=== PATIENT | female | born 1945 | race Caucasian/White ===

== ENCOUNTER → 2016-12-07 | Outpatient (CLI) | payer MEDICARE, BC ==
[2016-12-07 09:03] LABS: CH 32.6; CHCM 34.6; HCT 42.9 % (34.0-46.0); HDW 2.52; HGB 14.5 gm/dL (11.4-16.0); MCH 31.9 pg (25.0-35.0); MCHC 33.8 g/dL (31.0-37.0); MCV 94.6 fL (80.0-100.0); Mean Platelet Volume 6.6; RBC 4.54 m/uL (3.80-5.40); RDW 12.3 % (11.5-15.5); WBC 7.4 k/uL (3.8-10.6)
[2016-12-07 10:02] LABS: ALT 35 U/L (9-52); AST 23 U/L (14-36); Alkaline Phosphatase 63 U/L (38-126); Anion Gap 8 mmol/L; Blood Urea Nitrogen 18 mg/dL (7-17); Calcium 9.2 mg/dL (8.4-10.2); Carbon Dioxide 29 mmol/L (22-30); Chloride 105 mmol/L (98-107); Creatine Kinase 30 U/L (30-135); Glucose 91 mg/dL (74-99); Magnesium 2.1 mg/dL (1.6-2.3); Non-African American GFR(MDRD) >60 (>60 ml/min/1.73 sqM); Potassium 4.3 mmol/L (3.5-5.1); Sodium 142 mmol/L (137-145); Total Bilirubin 0.7 mg/dL (0.2-1.3); Total Protein 6.8 g/dL (6.3-8.2)
[2016-12-07 10:51] LABS: Vitamin B12 246 pg/mL
[2016-12-07 13:48] LABS: Hemoglobin A1C 5.3 % (4.2-6.1)
[2016-12-09 14:38] LABS: Vitamin E (Alpha Tocopherol) 1710 ug/dL (500-1800)
[2016-12-15 07:35] LABS: Vitamin K 1539 pg/mL (80-1160)
[2016-12-18 10:18] LABS: Mis test requested (Blood) Vitamin B3(Niacin)
== END ==
LOC: LABWHC1 08:26
PROVIDERS: ATTEND Psychiatry & Neurology Pain Medicine
DX: G89.4 Chronic pain syndrome (principal); G62.9 Polyneuropathy, unspecified
CPT/HCPCS: 36415; 80053; 82306; 82550; 82607; 83036; 83519; 83735; 84207; 84425; 84446; 84590; 84591; 84597; 85027

== ENCOUNTER → 2017-04-06 | Outpatient (CLI) | payer MEDICARE, BC | LOC: LABWHC1 08:10 | PROVIDERS: ATTEND Psychiatry & Neurology Pain Medicine | DX: E55.9 Vitamin D deficiency, unspecified (principal) | CPT/HCPCS: 36415; 82306 ==

== ENCOUNTER → 2017-04-25 | Outpatient (CLI) | payer MEDICARE, BC ==
--- NOTE | 2017-04-25 11:57 | MM ---
Reason for exam: follow-up at short interval from prior study. History: Patient is postmenopausal and history of breast cancer. Family history of breast cancer in maternal sister. Took hormonal contraceptives for 5 years. Took antineoplastic for 3 years. Physical Findings: Nurse did not find any significant physical abnormalities on exam. MG 3D Diag Mammo W/Cad QUINCY Bilateral CC and MLO view(s) were taken. There are scattered fibroglandular densities. Post therapy changes of the upper outer right breast at anterior depth. These results were verbally communicated with the patient and result sheet given to the patient on 04/25/17. ASSESSMENT: Benign, BI-RAD 2 RECOMMENDATION: Routine screening mammogram of both breasts in 1 year.
== END | disposition home or self-care (01) ==
LOC: RADMAMWWP 07:34
PROVIDERS: ATTEND Family Medicine
DX: Z08 Encounter for follow-up examination after completed treatment for malignant neoplasm (principal); Z85.3 Personal history of malignant neoplasm of breast
CPT/HCPCS: G0204; G0279

== ENCOUNTER → 2018-06-12 | Outpatient (CLI) | payer MEDICARE, BC ==
[2018-06-12 09:12] LABS: HCT 45.1 % (34.0-46.0); HGB 14.7 gm/dL (11.4-16.0); MCH 30.1 pg (25.0-35.0); MCHC 32.7 g/dL (31.0-37.0); MCV 91.9 fL (80.0-100.0); Mean Platelet Volume 7.1; Platelet Count 314 k/uL (150-450); RDW 12.4 % (11.5-15.5); WBC 8.3 k/uL (3.8-10.6)
[2018-06-12 09:26] LABS: Albumin 3.9 g/dL (3.5-5.0); Calcium 9.2 mg/dL (8.4-10.2); Potassium 4.5 mmol/L (3.5-5.1); Total Bilirubin 0.7 mg/dL (0.2-1.3); Total Protein 6.6 g/dL (6.3-8.2)
--- NOTE | 2018-06-12 12:02 | XR ---
EXAMINATION TYPE: XR chest 2V DATE OF EXAM: 06/12/2018 COMPARISON: Prior chest x-ray 06/03/2016 HISTORY: Pneumonia with cough TECHNIQUE: Frontal and lateral views of the chest are obtained. FINDINGS: Large retrocardiac air-fluid level, appearance of bowel loops again noted compatible with diaphragmatic hernia. No evident pneumothorax or pleural effusion. Heart is somewhat obscured due to superimposed density the left lung base. Aorta is dense. IMPRESSION: Findings are similar to prior exam. Suspect large hiatal or diaphragmatic hernia. Diffic ult to exclude superimposed airspace disease. Chest CT may be of benefit.
== END ==
LOC: LABWHC1 08:47
PROVIDERS: ATTEND Physician Assistant Medical
DX: R05 Cough (principal); Z00.00 Encounter for general adult medical examination without abnormal findings; Z87.81 Personal history of (healed) traumatic fracture
CPT/HCPCS: 36415; 71046; 80053; 80061; 84443; 85027

== ENCOUNTER → 2018-06-18 | Outpatient (CLI) | payer MEDICARE, BC ==
--- NOTE | 2018-06-18 11:04 | MM ---
Reason for exam: screening (asymptomatic). Last mammogram was performed 1 year and 2 months ago. History: Patient is postmenopausal and history of breast cancer. Family history of breast cancer in maternal sister. Lumpectomy of the right breast, 2005. Took hormonal contraceptives for 5 years. Took antineoplastic for 3 years. Physical Findings: A clinical breast exam by your physician is recommended on an annual basis and results should be correlated with mammographic findings. MG Screening Mammo w CAD Bilateral CC and MLO view(s) were taken. Technologist: RT Polina (R)(M) Prior study comparison: April 25, 2017, bilateral MG 3d diag mammo w/cad QUINCY. There are scattered fibroglandular densities. Finding: There are indeterminate calcifications in the 11-12 o'clock position of the left breast 11cm from the nipple. New finding since April 25, 2017. ASSESSMENT: Incomplete: need additional imaging evaluation, BI-RAD 0 RECOMMENDATION: Special view mammogram of the left breast. If lesion persists on supplemental views, image directed ultrasound is recommended. [facility] will attempt to contact patient to return for supplemental views and ultrasound if indicated.
== END | disposition home or self-care (01) ==
LOC: RADMAMWWP 07:05
PROVIDERS: ATTEND Family Medicine
DX: Z12.31 Encounter for screening mammogram for malignant neoplasm of breast (principal); Z98.82 Breast implant status; Z80.3 Family history of malignant neoplasm of breast
CPT/HCPCS: 77067

== ENCOUNTER → 2018-06-27 | Outpatient (CLI) | payer MEDICARE, BC ==
--- NOTE | 2018-06-27 14:08 | MM ---
Reason for exam: additional evaluation requested from abnormal screening. Last mammogram was performed less than 1 month ago. History: Patient is postmenopausal, has history of breast cancer at age 60, and history of other cancer. Family history of breast cancer in maternal sister. Lumpectomy of the right breast, 2005. Took hormonal contraceptives for 5 years. Took antineoplastic for 3 years. Physical Findings: Nurse did not find any significant physical abnormalities on exam. MG 3D Work Up W/Cad LT CC with magnification, LM with magnification, and LM view(s) were taken of the left breast. Prior study comparison: June 18, 2018, bilateral MG screening mammo w CAD. April 25, 2017, bilateral MG 3d diag mammo w/cad QUINCY. There are scattered fibroglandular densities. Finding: There are typically benign coarse heterogeneous, grouped/clustered calcifications in the upper outer quadrant, middle position of the left breast consistent with no associated masses. No significant changes in finding since June 18, 2018 and April 25, 2017. These results were verbally communicated with the patient and result sheet given to the patient on 06/27/18. ASSESSMENT: Benign, BI-RAD 2 RECOMMENDATION: Return to routine screening mammogram schedule for both breasts.
== END | disposition home or self-care (01) ==
LOC: RADMAMWWP 12:43
PROVIDERS: ATTEND Family Medicine
DX: R92.8 Other abnormal and inconclusive findings on diagnostic imaging of breast (principal)
CPT/HCPCS: 77065; G0279; 77061

== ENCOUNTER → 2019-06-26 | Outpatient (CLI) | payer MEDICARE, BC ==
--- NOTE | 2019-07-01 09:14 | MM ---
Reason for exam: screening (asymptomatic). Last mammogram was performed 1 year ago. History: Patient is postmenopausal, has history of breast cancer at age 60, and history of other cancer. Family history of breast cancer in maternal sister. Lumpectomy of the right breast, 2005. Took hormonal contraceptives for 5 years. Took antineoplastic for 3 years. Physical Findings: A clinical breast exam by your physician is recommended on an annual basis and results should be correlated with mammographic findings. MG 3D Screening Mammo W/Cad Bilateral CC and MLO view(s) were taken. Prior study comparison: June 27, 2018, left breast MG 3d work up w/cad LT. June 18, 2018, bilateral MG screening mammo w CAD. April 25, 2017, bilateral MG 3d diag mammo w/cad QUINCY. Finding: There are three fine, grouped/clustered calcifications in the upper inner quadrant of the left breast 12cm from the nipple. New finding since April 25, 2017. ASSESSMENT: Probably benign, BI-RAD 3 RECOMMENDATION: Follow-up diagnostic mammogram of the left breast in 6 months. (with magnification CC and tomosynthesis)
== END | disposition home or self-care (01) ==
LOC: RADMAMWWP 07:33
PROVIDERS: ATTEND Family Medicine
DX: Z12.31 Encounter for screening mammogram for malignant neoplasm of breast (principal); Z80.3 Family history of malignant neoplasm of breast
CPT/HCPCS: 77063; 77067

== ENCOUNTER → 2020-02-24 | Outpatient (CLI) | payer MEDICARE, BC ==
--- NOTE | 2020-02-24 12:21 | MM ---
Reason for exam: follow-up at short interval from prior study. Last mammogram was performed 8 months ago. History: Patient is postmenopausal, has history of breast cancer at age 60, and history of other cancer. Family history of breast cancer in maternal sister at age 55. Lumpectomy of the right breast, 2006. Radiation therapy of the right breast. Took hormonal contraceptives for 5 years. Took antineoplastic for 3 years beginning at age 60. Physical Findings: Nurse did not find any significant physical abnormalities on exam. MG 3D Diag Mammo W/Cad LT CC, MLO, ML, CC with magnification, and ML with magnification view(s) were taken of the left breast. Prior study comparison: June 26, 2019, bilateral MG 3d screening mammo w/cad. June 27, 2018, left breast MG 3d work up w/cad LT. The breast tissue is heterogeneously dense. This may lower the sensitivity of mammography. There are increasing left upper outer quadrant calcifications at middle depth associated with a focal asymmetry. There are heterogeneous on magnifications views. Biopsy recommended. These results were verbally communicated with the patient and result sheet given to the patient on 02/24/20. ASSESSMENT: Suspicious, BI-RAD 4 RECOMMENDATION: Stereotactic core biopsy of the left breast. Called Dr. Aldana's office with mammographic findings and has scheduled an appointment for the patient for 02/27/20 at 4:[address] Pichardo. Biopsy scheduled for 03/11/20 at 8:00. PRELIMINARY REPORT CALLED AND FAXED TO DR. PICHARDO ON 02/24/20.
== END | disposition home or self-care (01) ==
LOC: RADMAMWWP 07:28
PROVIDERS: ATTEND Family Medicine
DX: R92.8 Other abnormal and inconclusive findings on diagnostic imaging of breast (principal)
CPT/HCPCS: 77065; G0279; 77061

== ENCOUNTER → 2020-02-27 | Outpatient (CLI) | payer MEDICARE, BC ==
[2020-02-27 16:09] VITALS: BP 139/85; PULSE 74; RESP 18; TEMP 98
--- NOTE | 2020-02-27 16:31 | P.GSHP ---
History of Present Illness H&P Date: 02/27/20 Chief Complaint: Mammographic abnormality left breast Kassandra is a 74-year-old white female seen in consultation for Dr. Aldana, who underwent a bilateral mammogram on . This revealed some fine grouped calcifications in the upper inner quadrant of the left breast. She then had a 6 month follow-up of the left breast and 6to. This revealed increasing left upper outer quadrant calcifications. Stereotactic core biopsy was recommended. The patient does not feel any lumps masses or nodules in her breast. She is not complaining of any nipple discharge. She has no complaints of pain on a regular basis in her breast. She has no history of any trauma or infection in the breast. She had a right breast lumpectomy for malignancy in 2005. This was treated with a lumpectomy, and radiation. After she had a limited accident positive max. She did not have chemotherapy. He was treated at [facility]. This was stage II. There was no tumor and lymph nodes. Family History: sister: breast cancer, second primary of brain cancer and father: colon cancer Hormonal History: menarche: 11 G0 menopause: 49 BCP: unsure how long hormones: none Surgical history: Bilateral cataracts surgery Lumpectomy and sentinel node biopsy Medical History: 1. none Social History: smoke: none alcohol: every few months drugs:none - Constitutional Constitutional: Denies chills, Denies fever - EENT Eyes: denies blurred vision, denies pain Ears: bilateral: tinnitus, deny: decreased hearing Ears, nose, mouth and throat: Denies headache, Denies sore throat - Breasts Breasts: bilateral: as per HPI - Cardiovascular Cardiovascular: Denies chest pain, Denies shortness of breath - Respiratory Respiratory: Denies cough, Denies 7 - Gastrointestinal Comment: colonoscopy 7 years ago; Gastrointestinal: Reports diarrhea, Denies abdominal pain, Denies nausea, Denies vomiting - Genitourinary (Female) Genitourinary: Denies dysuria, Denies hematuria - Menstruation Menstruation: Reports postmenopausal - Musculoskeletal Musculoskeletal: Denies myalgias - Integumentary Integumentary: Denies pruritus, Denies rash - Neurological Neurological: Reports numbness, Denies weakness - Psychiatric Psychiatric: Denies anxiety, Denies depression - Endocrine Endocrine: Denies fatigue, Denies weight change - Hematologic/Lymphatic Comment: none - Allergic/Immunologic Allergic/Immunologic: Reports as per HPI Past Medical History Past Medical History: Cancer Additional Past Medical History / Comment(s): breast ca right breast with radiation 2005 History of Any Multi-Drug Resistant Organisms: None Reported Past Surgical History: Breast Surgery Additional Past Surgical History / Comment(s): right lumpectomy, jarrod. cateract surgery Past Anesthesia/Blood Transfusion Reactions: No Reported Reaction Past Psychological History: No Psychological Hx Reported Smoking Status: Never smoker Past Alcohol Use History: Occasional Past Drug Use History: None Reported Medications and Allergies Home Medications Medication Instructions Recorded Confirmed Type Calcium Carbonate [Calcium] 5,000 mg PO DAILY 06/03/16 02/27/20 History Niacin [Niacin ER] 500 mg PO BID 06/03/16 02/27/20 History Aspirin [Adult Low Dose Aspirin EC] 81 mg PO DAILY 02/24/20 02/27/20 History D-Methorphan/PE/Acetaminophen 1 each PO DAILY PRN 02/24/20 02/27/20 History [Sudafed PE Pressure+Pain+Cough] Allergies Allergy/AdvReac Type Severity Reaction Status Date / Time No Known Allergies Allergy Verified 02/27/20 16:09 Surgical - Exam Vital Signs Temp Pulse Resp BP Pulse Ox 98.0 F 74 18 139/85 98 02/27/20 16:06 02/27/20 16:06 02/27/20 16:06 02/27/20 16:06 02/27/20 16:06 BMI 23.4 - General well developed, well nourished, no distress - Eyes normal ocular movement - ENT no hearing loss, no congestion - Neck trachea midline - Respiratory normal respiratory effort, clear to auscultation - Cardiovascular Rhythm: regular Heart Sounds: normal: S1, S2 - Abdomen Abdomen: soft, non tender, no guarding, no rigid, no rebound - Integumentary normal turgor - Neurologic no disoriented, no combative - Musculoskeletal normal gait, normal posture - Psychiatric oriented to time, oriented to person, oriented to place, speech is normal, memory intact bresat exam: BRA 40 D inspection: Scar right breast from prior lumpectomy, nipple is deviated to the right, right breast smaller than left breast, nipple inversion, left breast grade 2/3 ptosis Palpation: Right breast no dominant masses or nodules of concern, postoperative changes Axilla: No adenopathy of concern, shotty adenopathy Left breast: Multiple positional exam fibrocystic changes Left axilla: No adenopathy of concern Results Mammogram results reviewed Assessment and Plan Assessment: Impression: 1. Radiographic abnormality left breast 2. No evidence of recurrent right breast cancer 3. Family history of cancer Plan: 1. Stereotactic core biopsy left breast Risk and benefits of procedure discussed with the patient. She will stop her aspirin 5 days before. Alternatives of watchful waiting versus resection the operating room discussed but not recommended. Risk of bleeding infection reaction to the anesthetic discussed. Patient understands and wishes to proceed. This will be scheduled in the near future. cc: DR. Maria Aldana encounter 45 minutes, > 50% of time in planning and counselling
== END | disposition home or self-care (01) ==
LOC: WWCWWP 15:49
PROVIDERS: ATTEND Surgery
DX: Z53.9 Procedure and treatment not carried out, unspecified reason (principal)

== ENCOUNTER → 2020-03-09 | Outpatient (CLI) | payer MEDICARE, BC | END | disposition home or self-care (01) | LOC: LABWHC1 07:50 | PROVIDERS: ATTEND Surgery | DX: Z11.59 Encounter for screening for other viral diseases (principal) ==

== ENCOUNTER → 2020-03-11 | Day surgery (SDC) | payer MEDICARE, BC ==
[2020-03-11 07:30] VITALS: RESP 16
--- NOTE | 2020-03-11 08:25 | P.PCN ---
Date of Procedure: 03/11/20 Preoperative Diagnosis: Left breast upper outer quadrant calcifications of concern Postoperative Diagnosis: Same Procedure(s) Performed: Left breast stereotactic core biopsy Anesthesia: local Surgeon: Maribeth Pichardo Pathology: other (Breast tissue) Condition: stable Disposition: same day Indications for Procedure: Left breast upper outer quadrant microcalcifications of concern Operative Findings: Calcifications present and biopsy specimen Description of Procedure: Kassandra is a 74-year-old white female who had a mammogram performed which revealed in the left breast upper outer quadrant area some calcifications of concern. Stereotactic core biopsy was recommended. Risks and benefits of the procedure were discussed with the patient and she wished to proceed. Alternatives such as watchful waiting or open biopsy were not recommended. The patient was taken to the stereotactic core biopsy room. She was positioned on the low. Table. A crop farmers film was obtained. The area of concern was identified. Stereo pair was obtained. The lesion was targeted. The breast was prepped using Betadine. 20 mL of 1% lidocaine 10 of which had epinephrine were used to anesthetize the area of concern. A 9-gauge vacuum-assisted core rotating biopsy needle was driven to the correct coordinates and fired. A post- fire radiograph revealed the needle to be in the correct location. 8 core biopsies were obtained. Radiograph of the specimen revealed calcifications in the area of concern was sampled. A secure moshe topically a clip was left in place. This was noted to be in the correct location. The patient tolerated the procedure in stable condition. Specimen was sent for pathology. The patient will follow-up with Dr. Guajardo next week.
[2020-03-11 08:42] VITALS: BP 138/78; PULSE 73; TEMP 98.4
--- NOTE | 2020-03-11 09:09 | MM ---
EXAMINATION TYPE: MG stereo VAD BX LT DATE OF EXAM: 03/11/2020 COMPARISON: Prior mammograms February 24, 2020 and older mammograms. CLINICAL HISTORY: Abnormal mammogram. TECHNIQUE: Stereotactic guided core biopsy of left breast. FINDINGS: The procedure of stereotactic guided core biopsy was explained to the patient. Benefits, alternatives, and risks were discussed. An informed consent was then obtained. The shortness pathway for biopsy was chosen. Shortness pathway was cranial approach. I performed the localization, then surgeon, Dr. Bennett Hicks performed the remainder of the procedure. A vacuum assisted biopsy gun was used to obtain multiple core samples. The patient tolerated the procedure well without any immediate complication. The patient was kept in the radiology department for short stay after the procedure and then discharged home in stable condition. Targeted calcifications are identified in specimen mammogram. Post biopsy mammogram shows the clip to appear in satisfactory position relative to the targeted area of concern on the preprocedure images. No residual calcifications present. IMPRESSION: SUCCESSFUL, UNCOMPLICATED STEREOTACTIC GUIDED CORE BIOPSY OF AREA OF CONCERN IN THE LEFT BREAST, FULL PATHOLOGY RESULTS TO FOLLOW. Low index of suspicion noted at time of procedure. Pathology Results: Benign LEFT BREAST, STEREOTACTIC CORE BIOPSY: Fibrocystic changes including fibroadenomatoid hyperplasia, microcalcifications, fibrosis, cysts, adenosis and apocrine metaplasia. Recommendation Follow up mammogram of the left breast in 6 months. MAYCO
== END ==
LOC: RADMAMWWP 07:09
PROVIDERS: ATTEND Surgery
DX: N60.22 Fibroadenosis of left breast (principal); N60.32 Fibrosclerosis of left breast; N60.82 Other benign mammary dysplasias of left breast
CPT/HCPCS: 88305; 19081; A4648; J2001

== ENCOUNTER → 2020-03-18 | Outpatient (CLI) | payer MEDICARE, BC ==
[2020-03-18 14:32] VITALS: BP 125/82; PULSE 66; RESP 18; TEMP 98.5
--- NOTE | 2020-03-18 14:44 | P.PN ---
Subjective Progress Note Date: 03/18/20 Principal diagnosis: stero core biopsy results/benign Kassandra is a 74 year old white female status post a left breast stero core biopsy on 03-11-20. Pathology revealed fibrocystic changes including fibroadenomatosis hyperplasia, microcalcifications, fibrosis, cysts, adenosis and apocrine metaplasia. The patient tolerated the procedure well with no complications. Objective - Vital Signs Vital signs: Vital Signs Temp 98.5 F 03/18/20 14:30 Pulse 66 03/18/20 14:30 Resp 18 03/18/20 14:30 BP 125/82 03/18/20 14:30 Pulse Ox 97 03/18/20 14:30 Intake & Output 03/17/20 03/18/20 03/18/20 18:59 06:59 18:59 Weight 58.06 kg - Exam BMI 23.4 - Constitutional General appearance: Present: average body habitus - EENT Eyes: Present: EOMI ENT: Present: hearing grossly normal - Neck Neck: Present: normal ROM - Respiratory Respiratory: bilateral: CTA - Cardiovascular Rhythm: regular Heart sounds: normal: S1, S2 - Gastrointestinal General gastrointestinal: Present: normal bowel sounds, soft - Integumentary Integumentary: Present: normal turgor - Musculoskeletal Musculoskeletal: Present: gait normal - Psychiatric Psychiatric: Present: A&O x's 3, appropriate affect, intact judgment & insight - Additional findings Additional findings: Biopsy site left breast mild ecchymosis no evidence of infection Assessment and Plan Assessment: Impression: Patient status [place] [id number]. Pathology is benign/concordant. Plan: 1. Patient will be due for bilateral mammogram on 06/28/2022 follow-up after that Cc: Dr. Aldana encounter 15 minutes, > 50% of time in planning and counselling
== END | disposition home or self-care (01) ==
LOC: WWCWWP 13:48
PROVIDERS: ATTEND Surgery
DX: Z53.9 Procedure and treatment not carried out, unspecified reason (principal)

== ENCOUNTER → 2020-07-05 | Outpatient (CLI) | payer MEDICARE, BC ==
--- NOTE | 2020-07-07 11:16 | MM ---
Reason for exam: screening (asymptomatic). Last mammogram was performed 4 months ago. History: Patient is postmenopausal, has history of breast cancer at age 60, and history of other cancer. Family history of breast cancer in maternal sister at age 55. Benign MG stereo VAD BX LT of the left breast, March 11, 2020. Lumpectomy of the right breast, 2005. Radiation therapy of the right breast. Took hormonal contraceptives for 5 years. Took antineoplastic for 3 years beginning at age 60. Physical Findings: A clinical breast exam by your physician is recommended on an annual basis and results should be correlated with mammographic findings. MG 3D Screening Mammo W/Cad Bilateral CC and MLO view(s) were taken. Prior study comparison: February 24, 2020, left breast MG 3d diag mammo w/cad LT. June 26, 2019, bilateral MG 3d screening mammo w/cad. Previous mammotome biopsy in the right and left breast. Asymmetric breast tissue greater in the left breast. ASSESSMENT: Benign, BI-RAD 2 RECOMMENDATION: Routine screening mammogram of both breasts in 1 year.
== END | disposition home or self-care (01) ==
LOC: RADMAMWWP 06:56
PROVIDERS: ATTEND Surgery
DX: Z12.31 Encounter for screening mammogram for malignant neoplasm of breast (principal)
CPT/HCPCS: 77063; 77067

== ENCOUNTER → 2020-07-09 | Outpatient (CLI) | payer MEDICARE, BC ==
[2020-07-09 10:54] VITALS: BP 136/85; PULSE 81; RESP 18; TEMP 97.8
--- NOTE | 2020-07-09 11:27 | P.PN ---
Subjective Progress Note Date: 07/09/20 Principal diagnosis: stage II right breast cancer surveillance Kassandra is a 74-year-old white female seen in consultation for Dr. [place] [address]. This revealed some fine grouped calcifications in the upper inner quadrant of the left breast. She then had a 6 month follow-up of the left breast and 6220. This revealed increasing left upper outer quadrant calcifications. Stereotactic [place] biopsy [place] [address]. Pathology revealed fibrocystic changes including fibroadenomatoid hyperplasia, microcalcifications, fibrosis, cyst, adenosis and apocrine metaplasia. The patient did not feel any lumps masses or nodules in her breast. She was not complaining of any nipple discharge. She kathleen no complaints of pain on a regular basis in her breast. She has no history of any trauma or infection in the breast. She had a right breast lumpectomy for malignancy in 2005. This was treated with a lumpectomy, and radiation. She did not have chemotherapy. She was treated at [facility]. This was stage II. There was no tumor in the lymph nodes. Patient without any lumps masses nodules or pain in her breast at this time. She had a bilateral mammogram performed on [id number] this was benign BIRADS 2. Is not complaining of any pain or nipple discharge in her breast. Family History: sister: breast cancer, second primary of brain cancer and father: colon cancer Hormonal History: menarche: 11 G0 menopause: 49 BCP: unsure how long hormones: none Surgical history: Bilateral cataracts surgery Lumpectomy and sentinel node biopsy right breast Medical History: 1. none Social History: smoke: none alcohol: every few months drugs:none - Constitutional Constitutional: Denies chills, Denies fever - EENT Eyes: denies blurred vision, denies pain Ears: bilateral: tinnitus, deny: decreased hearing Ears, nose, mouth and throat: Denies headache, Denies sore throat - Breasts Breasts: bilateral: as per HPI - Cardiovascular Cardiovascular: Denies chest pain, Denies shortness of breath - Respiratory Respiratory: Denies cough - Gastrointestinal Comment: colonoscopy 7 years ago; Gastrointestinal: Reports diarrhea, Denies abdominal pain, Denies nausea, Denies vomiting - Genitourinary (Female) Genitourinary: Denies dysuria, Denies hematuria - Menstruation Menstruation: Reports postmenopausal - Musculoskeletal Musculoskeletal: Denies myalgias - Integumentary Integumentary: Denies pruritus, Denies rash - Neurological Neurological: Reports numbness, Denies weakness - Psychiatric Psychiatric: Denies anxiety, Denies depression - Endocrine Endocrine: Denies fatigue, Denies weight change - Hematologic/Lymphatic Comment: none - Allergic/Immunologic Allergic/Immunologic: Reports as per HPI Objective - Vital Signs Vital signs: Vital Signs Temp 97.8 F 07/09/20 10:51 Pulse 81 07/09/20 10:51 Resp 18 07/09/20 10:51 BP 136/85 07/09/20 10:51 Pulse Ox 99 07/09/20 10:51 Intake & Output 07/08/20 07/09/20 07/09/20 18:59 06:59 18:59 Weight 56.699 kg - Exam BMI 22.9 - Constitutional General appearance: Present: average body habitus - EENT Eyes: Present: EOMI ENT: Present: hearing grossly normal - Neck Neck: Present: normal ROM - Respiratory Respiratory: bilateral: CTA - Cardiovascular Rhythm: regular Heart sounds: normal: S1, S2 - Gastrointestinal General gastrointestinal: Present: normal bowel sounds, soft - Integumentary Integumentary: Present: normal turgor - Musculoskeletal Musculoskeletal: Present: gait normal - Psychiatric Psychiatric: Present: A&O x's 3, appropriate affect, intact judgment & insight - Additional findings Additional findings: breast exam: BRA: 40C inspection: right breast grade 2, left 3 ptosis left breast palpation: Right breast: Patient's status post right breast lumpectomy, postop changes noted no dominant masses or nodules of concern Right axilla: No adenopathy of concern Left breast: Multiple positional exam fibrocystic changes, no dominant masses or nodules of concern larger than right breast Left axilla: No adenopathy of concern Assessment and Plan Assessment: Impression: 1. no evidence of recurrent cancer right breast 2. Asymmetry of the left breast making it difficult to find close to fit well Plan: 1. Bilateral mammogram 1 year with physician exam at that time 2. We have discussed the asymmetry of the left breast related to the prior right breast lumpectomy and patient wishes to have a Talbot pattern reduction performed on the left breast 3. Medical clearance I have placed the surgical markings for a Talbot pattern reduction on the left breast. I have discussed with the patient the risks and benefits of the procedure. At this time she is interested in pursuing this. This will be scheduled for the first part of September 2020. Given her the option of seeing a plastic surgeon at this time she has declined. Cc: Dr. Aldana encounter 25 minutes, > 50% of time in planning and counselling
== END | disposition home or self-care (01) ==
LOC: WWCWWP 10:26
PROVIDERS: ATTEND Surgery
DX: Z53.9 Procedure and treatment not carried out, unspecified reason (principal)

== ENCOUNTER 2021-01-04 10:23 | Emergency (ER) | payer MEDICARE, BC ==
--- NOTE | 2021-01-04 10:40 | ED ---
General Adult HPI - General Chief complaint: Chest Pain Stated complaint: chest pain,SOB Time Seen by Provider: 01/04/21 10:25 Source: patient, RN notes reviewed, old records reviewed Mode of arrival: ambulatory Limitations: no limitations - History of Present Illness Initial comments: This is a 75-year-old female presents to the emergency department stating that throughout the week she's had a few episodes of some chest tightness here and there but today she had 3 episodes of chest pain. Patient states each episode only lasted a couple of seconds and they were sharp in nature. Patient states he was just right of the sternum where the pain occurred. Patient states there was no associated symptoms. Patient denies shortness of breath or difficulty breathing. Patient denies any recent fever chills or cough. Patient denies any palpitations. Patient denies any diaphoretic episodes. Patient denies any nausea vomiting per patient denies any abdominal pain. Patient states currently she is asymptomatic. Patient states the pain level was about a 3 out of 10 but for 2 seconds only - Related Data Home Medications Medication Instructions Recorded Confirmed Calcium Carbonate [Calcium] 1,200 mg PO BID 06/03/16 01/04/21 Aspirin [Adult Low Dose Aspirin EC] 81 mg PO DAILY 02/24/20 01/04/21 Niacin 600mg 600 mg PO BID 01/04/21 01/04/21 Allergies Allergy/AdvReac Type Severity Reaction Status Date / Time No Known Allergies Allergy Verified 01/04/21 12:07 Review of Systems ROS Statement: Those systems with pertinent positive or pertinent negative responses have been documented in the HPI. ROS Other: All systems not noted in ROS Statement are negative. Past Medical History Past Medical History: Cancer Additional Past Medical History / Comment(s): breast ca right breast with radiation 2006 History of Any Multi-Drug Resistant Organisms: None Reported Past Surgical History: Breast Surgery Additional Past Surgical History / Comment(s): right lumpectomy, jarrod. cateract surgery Past Anesthesia/Blood Transfusion Reactions: No Reported Reaction Past Psychological History: No Psychological Hx Reported Smoking Status: Never smoker Past Alcohol Use History: Occasional Past Drug Use History: None Reported General Exam - General Exam Comments Initial Comments: GENERAL: Patient is well-developed and well-nourished. Patient is nontoxic and well- hydrated and is in no acute distress. ENT: Neck is soft and supple. No significant lymphadenopathy is noted. Oropharynx is clear. Moist mucous membranes. Neck has full range of motion without eliciting any pain. EYES: The sclera were anicteric and conjunctiva were pink and moist. Extraocular movements were intact and pupils were equal round and reactive to light. Eyelids were unremarkable. PULMONARY: Unlabored respirations. Good breath sounds bilaterally. No audible rales rhonchi or wheezing was noted. CARDIOVASCULAR: There is a regular rate and rhythm without any murmurs gallops or rubs. ABDOMEN: Soft and nontender with normal bowel sounds. No palpable organomegaly was noted. There is no palpable pulsatile mass. SKIN: Skin is clear with no lesions or rashes and otherwise unremarkable. NEUROLOGIC: Patient is alert and oriented x3. Cranial nerves II through XII are grossly intact. Motor and sensory are also intact. Normal speech, volume and content. Symmetrical smile. MUSCULOSKELETAL: Normal extremities with adequate strength and full range of motion. LYMPHATICS: No significant lymphadenopathy is noted PSYCHIATRIC: Normal psychiatric evaluation. Limitations: no limitations Course Vital Signs 01/04/21 01/04/21 01/04/21 10:25 11:15 12:25 Temperature 97.5 F L 97.7 F Pulse Rate 87 79 71 Respiratory 20 18 18 Rate Blood Pressure 154/98 187/95 159/95 O2 Sat by Pulse 98 99 98 Oximetry Medical Decision Making - Medical Decision Making EKG shows sinus rhythm at 73 bpm IN interval is 238 QRS is 142 QT intervals 436 QTC is 480. Patient has left bundle branch block. Chest x-ray shows a very large hiatal hernia. I spoke to the patient about this she did not know she had one. Patient was asymptomatic throughout her ED stay. - Lab Data Result diagrams: 01/04/21 10:51 01/04/21 10:51 Lab Results 01/04/21 01/04/21 01/04/21 Range/Units 10:51 10:51 10:51 WBC 8.1 (3.8-10.6) k/uL RBC 4.76 (3.80-5.40) m/uL Hgb 14.9 (11.4-16.0) gm/dL Hct 42.7 (34.0-46.0) % MCV 89.6 (80.0-100.0) fL MCH 31.3 (25.0-35.0) pg MCHC 34.9 (31.0-37.0) g/dL RDW 11.9 (11.5-15.5) % Plt Count 296 (150-450) k/uL MPV 7.3 Neutrophils % 60 % Lymphocytes % 30 % Monocytes % 5 % Eosinophils % 4 % Basophils % 1 % Neutrophils # 4.9 (1.3-7.7) k/uL Lymphocytes # 2.4 (1.0-4.8) k/uL Monocytes # 0.4 (0-1.0) k/uL Eosinophils # 0.3 (0-0.7) k/uL Basophils # 0.1 (0-0.2) k/uL PT 10.0 (9.0-12.0) sec INR 0.9 (<1.2) APTT 23.8 (22.0-30.0) sec D-Dimer 0.28 (<0.60) mg/L FEU Sodium 136 L (137-145) mmol/L Potassium 3.9 (3.5-5.1) mmol/L Chloride 100 (98-107) mmol/L Carbon Dioxide 29 (22-30) mmol/L Anion Gap 7 mmol/L BUN 17 (7-17) mg/dL Creatinine 0.66 (0.52-1.04) mg/dL Est GFR (CKD-EPI)AfAm >90 (>60 ml/min/1.73 sqM) Est GFR (CKD-EPI)NonAf 86 (>60 ml/min/1.73 sqM) Glucose 112 H (74-99) mg/dL Calcium 9.1 (8.4-10.2) mg/dL Magnesium 1.8 (1.6-2.3) mg/dL Total Bilirubin 0.6 (0.2-1.3) mg/dL AST 21 (14-36) U/L ALT 12 (4-34) U/L Alkaline Phosphatase 56 (38-126) U/L Troponin I (0.000-0.034) ng/mL Total Protein 6.5 (6.3-8.2) g/dL Albumin 3.9 (3.5-5.0) g/dL 01/04/21 Range/Units 10:51 WBC (3.8-10.6) k/uL RBC (3.80-5.40) m/uL Hgb (11.4-16.0) gm/dL Hct (34.0-46.0) % MCV (80.0-100.0) fL MCH (25.0-35.0) pg MCHC (31.0-37.0) g/dL RDW (11.5-15.5) % Plt Count (150-450) k/uL MPV Neutrophils % % Lymphocytes % % Monocytes % % Eosinophils % % Basophils % % Neutrophils # (1.3-7.7) k/uL Lymphocytes # (1.0-4.8) k/uL Monocytes # (0-1.0) k/uL Eosinophils # (0-0.7) k/uL Basophils # (0-0.2) k/uL PT (9.0-12.0) sec INR (<1.2) APTT (22.0-30.0) sec D-Dimer (<0.60) mg/L FEU Sodium (137-145) mmol/L Potassium (3.5-5.1) mmol/L Chloride (98-107) mmol/L Carbon Dioxide (22-30) mmol/L Anion Gap mmol/L BUN (7-17) mg/dL Creatinine (0.52-1.04) mg/dL Est GFR (CKD-EPI)AfAm (>60 ml/min/1.73 sqM) Est GFR (CKD-EPI)NonAf (>60 ml/min/1.73 sqM) Glucose (74-99) mg/dL Calcium (8.4-10.2) mg/dL Magnesium (1.6-2.3) mg/dL Total Bilirubin (0.2-1.3) mg/dL AST (14-36) U/L ALT (4-34) U/L Alkaline Phosphatase (38-126) U/L Troponin I <0.012 (0.000-0.034) ng/mL Total Protein (6.3-8.2) g/dL Albumin (3.5-5.0) g/dL Disposition Clinical Impression: Hiatal hernia, Chest pain Disposition: HOME SELF-CARE Condition: Good Instructions (If sedation given, give patient instructions): Chest Pain (ED), Hiatal Hernia (ED) Is patient prescribed a controlled substance at d/c from ED?: No Referrals: Maria Aldana DO [Primary Care Provider] - 1-2 days Time of Disposition: 12:11
[2021-01-04 11:03] LABS: Basophils # (A) 0.1 k/uL (0-0.2); Basophils % (A) 1 %; Eosinophils # (A) 0.3 k/uL (0-0.7); Eosinophils % (A) 4 %; HCT 42.7 % (34.0-46.0); HGB 14.9 gm/dL (11.4-16.0); Lymphocytes # (A) 2.4 k/uL (1.0-4.8); Lymphocytes % (A) 30 %; MCH 31.3 pg (25.0-35.0); MCHC 34.9 g/dL (31.0-37.0); MCV 89.6 fL (80.0-100.0); Mean Platelet Volume 7.3; Monocytes # (A) 0.4 k/uL (0-1.0); Monocytes % (A) 5 %; Neutrophils # (A) 4.9 k/uL (1.3-7.7); Neutrophils % (A) 60 %; Platelet Count 296 k/uL (150-450); RBC 4.76 m/uL (3.80-5.40); RDW 11.9 % (11.5-15.5); WBC 8.1 k/uL (3.8-10.6)
[2021-01-04 11:17] VITALS: RESP 18
[2021-01-04 11:19] LABS: ALT 12 U/L (4-34); AST 21 U/L (14-36); African American GFR (CKD) >90 (>60 ml/min/1.73 sqM); Albumin 3.9 g/dL (3.5-5.0); Alkaline Phosphatase 56 U/L (38-126); Anion Gap 7 mmol/L; Blood Urea Nitrogen 17 mg/dL (7-17); Calcium 9.1 mg/dL (8.4-10.2); Carbon Dioxide 29 mmol/L (22-30); Chloride 100 mmol/L (98-107); Glucose 112 mg/dL (74-99); Magnesium 1.8 mg/dL (1.6-2.3); Non-African American GFR(CKD) 86 (>60 ml/min/1.73 sqM); Potassium 3.9 mmol/L (3.5-5.1); Sodium 136 mmol/L (137-145); Total Bilirubin 0.6 mg/dL (0.2-1.3); Total Protein 6.5 g/dL (6.3-8.2)
[2021-01-04 11:21] LABS: D-Dimer 0.28 mg/L FEU (<0.60); INR 0.9 (<1.2); Partial Thromboplastin Time 23.8 sec (22.0-30.0)
--- NOTE | 2021-01-04 11:37 | XR ---
EXAMINATION TYPE: XR chest 2V DATE OF EXAM: 01/04/2021 COMPARISON: 06/12/2018 HISTORY: 75-year-old female with chest pain and tightness TECHNIQUE: PA and lateral views FINDINGS: Left heart margin obscured by a patient's large hiatal versus diaphragmatic hernia which extends up t o the left midlung level. This may be slightly larger as compared to 2018. No definite consolidation or pleural effusion. IMPRESSION: Redemonstrated large hiatal versus diaphragmatic hernia filling the left lower lung extending up to t he midlung level, similar to slightly larger from 2018.
[2021-01-04 12:26] VITALS: BP 159/95; PULSE 71; TEMP 97.7
== END 2021-01-04 12:26 | disposition home or self-care (01) ==
LOC: EC 10:23
DX: K44.9 Diaphragmatic hernia without obstruction or gangrene (principal); Z79.82 Long term (current) use of aspirin
CPT/HCPCS: 36415; 71046; 80053; 83735; 84484; 85025; 85379; 85610; 85730; 93005; 99285

== ENCOUNTER 2021-03-29 10:25 | Day surgery (SDC) | payer MEDICARE, BC ==
[2021-03-24 18:13] VITALS: BMI 22.8
[2021-03-29 10:51] VITALS: RESP 16; TEMP 97
[2021-03-29] MEDS ORDERED: LACTATED RINGERS 1,000 ML IV ONE (10:54)
[2021-03-29] MEDS ORDERED: LIDOCAINE 1% (10MG/ML) FOR IV START INTRADERMA ONE (10:55)
[2021-03-29] MEDS ORDERED: PROPOFOL 10 MG/ML 20 ML VIAL IV ONE (11:05)
[2021-03-29] MEDS ORDERED: LIDOCAINE 1% INJ 10MG/ML (20 ML MDV) ONE (11:05)
--- NOTE | 2021-03-29 11:19 | P.PCN ---
Preoperative Diagnosis: Preoperative Dx: GERD, hiatal hernia Postoperative Dx: Large hiatal hernia, mild gastritis Procedure: EGD with Bx Anesthesia: Sedation Endoscopist: Dr. Chaparro Specimens: Antrum Endoscopic Procedure: The patient was on the endoscopy table in the left decubitus position. The Olympus gastroscope was inserted into the oropharynx and passed under direct visualization to the region of the third portion of the duodenum. From that point the scope was slowly withdrawn inspecting all surfaces carefully. There were no neoplastic inflammatory or polypoid lesions throughout the duodenum. The pylorus was widely patent. The stomach was carefully inspected. There was mild to moderate gastritis present. A biopsy of the antrum took place to rule out H. pylori. Patient had narrowing at the antrum and I suspect this is where the diaphragmatic hiatus was present. When we were retroflexing within the hernia the GE junction itself appeared normal. GE junction was present at 28 cm. The remainder of the esophagus was inspected and appeared normal. The patient was then taken to the recovery room in stable condition per anesthesia guidelines. Recommendations: Await biopsy results. Will order CT chest to evaluate hiatal hernia anatomy further. Will contact patient with those results.
[2021-03-29 11:38] VITALS: BP 117/78; PULSE 69
== END 2021-03-29 12:03 | disposition home or self-care (01) ==
LOC: ORWHC2ENDO 10:25
PROVIDERS: ATTEND Surgery
DX: K44.9 Diaphragmatic hernia without obstruction or gangrene (principal); K29.50 Unspecified chronic gastritis without bleeding; Z80.3 Family history of malignant neoplasm of breast; Z80.8 Family history of malignant neoplasm of other organs or systems
CPT/HCPCS: 43239; 88305; J2001; J2704

== ENCOUNTER → 2021-03-30 | Outpatient (CLI) | payer MEDICARE, BC ==
[2021-03-30 06:51] LABS: African American GFR (CKD) >90 (>60 ml/min/1.73 sqM); Blood Urea Nitrogen 16 mg/dL (7-17); Non-African American GFR(CKD) >90 (>60 ml/min/1.73 sqM)
--- NOTE | 2021-03-30 07:48 | CT ---
EXAMINATION TYPE: CT chest w con DATE OF EXAM: 03/30/2021 COMPARISON: HISTORY: Chest pain, hiatal hernia CT DLP: 215.8 mGycm Automated exposure control for dose reduction was used. CONTRAST: CT scan of the chest is performed with IV Contrast, patient injected with 100 mL of Isovue 300. FINDINGS: LUNGS: There is a large diaphragmatic hernia on the left which contains the entire stomach portions o f the colon small bowel loops as well as portions of the pancreas. The lungs are grossly clear, there is no concerning parenchymal mass or nodule identified. There is no pleural effusion or pneumothor ax seen. The tracheobronchial tree is patent. MEDIASTINUM: There are no greater than 1 cm hilar or mediastinal lymph nodes. No pericardial effusi on is seen. Thoracic aorta is of normal caliber. The heart is not enlarged. UPPER ABDOMEN: Gallstones are noted. OTHER: No additional significant abnormality is seen. IMPRESSION: 1. Large diaphragmatic hernia as discussed above. 2. Cholelithiasis.
== END | disposition home or self-care (01) ==
LOC: RADCTMAIN 06:18
PROVIDERS: ATTEND Surgery
DX: K44.9 Diaphragmatic hernia without obstruction or gangrene (principal)
CPT/HCPCS: 82565; 84520; 71260; 36415; Q9967

== ENCOUNTER → 2022-01-02 | Outpatient (CLI) | payer MEDICARE, BC ==
--- NOTE | 2022-01-02 11:48 | FL ---
ESOPHOGRAM. HISTORY: Reflux following left sided diaphragmatic hernia repair. Esophagram was performed per the single contrast technique. The patient swallowed barium without dif ficulty or delay. Esophageal peristalsis and motility appear to be within normal limits. There is no evidence for filling defect, mass or diverticulum. There is sliding-type hiatal hernia noted. No evidence for reflux during the course of the study. Subsequently single contrast cervical esophagram was performed which fails demonstrate evidence for a spiration penetration or mass. IMPRESSION: Small sliding-type hiatal hernia noted.
== END | disposition home or self-care (01) ==
LOC: RADUSWWP 10:43
PROVIDERS: ATTEND Surgery
DX: K44.9 Diaphragmatic hernia without obstruction or gangrene (principal)
CPT/HCPCS: 74220

== ENCOUNTER → 2022-08-18 | Outpatient (CLI) | payer MEDICARE, BC ==
--- NOTE | 2022-08-18 10:13 | FL ---
EXAMINATION TYPE: FL barium swallow DATE OF EXAM: 08/18/2022 9:31 AM COMPARISON: Esophagram 01/02/2022. CT chest 03/30/2021 CLINICAL INDICATION:Female, 76 years old with history of K44.9 HIATAL HERNIA; TECHNIQUE: The procedure was explained and patient history elicited. All patient questions were ans wered prior to start of procedure. Multiple spot fluoroscopic images of the esophagus were obtained a fter the oral ingestion of effervescent crystals and liquid barium as the contrast agent. A profile trimmer ra diograph of the chest was obtained and reviewed. Fluoroscopic time: 28 seconds Fluoroscopic images: Radiographs taken: 231 FINDINGS: A similar morphology to the distal esophagus with small sliding-type hiatal hernia. No definitive ulc eration outpouching visualized. There is delayed emptying of contrast through the gastroesophageal ju nction. There is mild dilation of the distal esophagus likely secondary to some degree of narrowing a t the gastric esophageal junction which is above the diaphragm. Prone imaging demonstrated minimal tr ansit of contrast through the esophagus. Prone imaging also required multiple subsequent swallows to clear the esophagus from prone imaging. IMPRESSION: Persistent sliding-type hiatal hernia similar to esophagram on 01/02/2022 with esophageal dysmotility or swelling prone.
== END | disposition home or self-care (01) ==
LOC: RADUSWWP 08:41
PROVIDERS: ATTEND Surgery
DX: K44.9 Diaphragmatic hernia without obstruction or gangrene (principal)
CPT/HCPCS: 74220

== ENCOUNTER → 2023-12-04 | Outpatient (CLI) | payer MEDICARE ==
--- NOTE | 2023-12-04 11:25 | MM ---
Reason for Exam: Follow-up at short interval from prior study. Last mammogram was performed 1 year(s) and 1 month(s) ago. Patient History: Menarche at age 11. Postmenopausal. Breast cancer, right, age 60. Other cancer. Patient used Hormonal Contraceptives for 5 years. 2005, Lumpectomy on the Right side. 03/11/2020, Benign Core Biopsy on the left side. Radiation Therapy, right. Sister had breast cancer, age 55. Tissue Density: There are scattered areas of fibroglandular density. Findings: Analyzed By CAD. Postsurgical posttreatment changes right breast redemonstrated micropuncture right breast from prior biopsy. Unchanged central lower asymmetric density right MLO view middle depth. Microclip left breast from recent biopsy. No significant change from prior exams. Overall Assessment: Benign, BI-RAD 2 Management: Screening Mammogram of both breasts in 1 year. . Results were given to the patient verbally at the time of exam. Patient should continue monthly self-breast exams. A clinical breast exam by your physician is recommended on an annual basis. This exam should not preclude additional follow-up of suspicious palpable abnormalities. Electronically signed and approved by: Sid Manjarrez M.D. Radiologist
== END | disposition home or self-care (01) ==
LOC: RADMAMWWP 10:29
PROVIDERS: ATTEND Family Medicine
DX: R92.323 Mammographic fibroglandular density, bilateral breasts (principal); Z78.0 Asymptomatic menopausal state; Z80.3 Family history of malignant neoplasm of breast
CPT/HCPCS: 77066; G0279; 77062